=== PATIENT | female | born 1970 | race Caucasian/White ===

== ENCOUNTER 2016-12-04 12:40 | Emergency (ER) | payer MEDICAID | END 2016-12-04 13:49 | disposition home or self-care (01) | LOC: D.ER 12:40 | DX: F20.9 Schizophrenia, unspecified (principal) ==

== ENCOUNTER 2019-01-08 18:52 | Emergency (ER) | payer MEDICARE, OTHER ==
[~2019-01-08] VITALS: Ht 162.6 cm; Wt 50.9 kg
[2019-01-08 19:01] VITALS: Ht 162.6 cm; Wt 50.9 kg
[2019-01-08 19:30] LABS: HEMATOCRIT 40.5 % (36.0-48.0); HEMOGLOBIN 14.9 g/dL (12-16); MCH 32.2 pg (26.0-34.0); MCHC 36.8 g/dL (31.0-37.0); MCV 87.5 fL (80.0-100.0); MEAN PLATELET VOLUME 10.7 fL (7.4-10.4); PLATELET COUNT 220 10x3/uL (130-400); RBC 4.63 10x6/uL (4.00-5.40); RDW 13.1 % (11.5-14.5); WBC 4.6 10x3/uL (4.8-10.8)
[2019-01-08 19:43] LABS: HCG SERUM NEGATIVE (NEGATIVE)
[2019-01-08 19:49] LABS: ALBUMIN 3.8 g/dL (3.4-5.0); ALKALINE PHOSPHATASE 88 U/L (46-116); ALT (SGPT) 26 U/L (10-68); BILIRUBIN - TOTAL 0.29 mg/dL (0.2-1.3); CALC OSMOLALITY 278 mosm/kg (275-300); CALCIUM 8.8 mg/dL (8.5-10.1); CARBON DIOXIDE 26.5 mmol/L (21.0-32.0); CHLORIDE - SERUM 102 mmol/L (98-107); CREATININE - SERUM 0.8 mg/dL (0.6-1.3); GLUCOSE 84 mg/dL (74-106); MAGNESIUM - SERUM 1.8 mg/dL (1.8-2.4); POTASSIUM - SERUM 3.7 mmol/L (3.5-5.1); PROTEIN - SERUM 7.4 g/dL (6.4-8.2); SODIUM 140 mmol/L (136-145); UREA NITROGEN 14 mg/dL (7-18); eGFR NON AFRICAN AMERICAN 81 mL/min (90-120)
[2019-01-08 19:55] LABS: EOSINOPHILS 1 % (0-7); LYMPHOCYTES 40 % (15-50); MONOCYTES 21 % (2-11); NEUTROPHILS 38 % (40-80)
[2019-01-08 19:56] LABS: PLATELET ESTIMATE NORMAL; ROULEAUX 1+; TARGET CELLS OCC; TEAR DROP CELLS 1+
[2019-01-08 20:24] LABS: APPEARANCE CLEAR (CLEAR); BILIRUBIN NEGATIVE (NEGATIVE); COLOR DK YELLOW (YELLOW); GLUCOSE NEGATIVE (NEGATIVE); KETONE LARGE mg/dL (NEGATIVE); NITRITE NEGATIVE (NEGATIVE); PROTEIN 1+ mg/dL (NEGATIVE); UROBILINOGEN NORMAL (NORMAL)
[2019-01-08 20:26] LABS: RED CELLS - URINE 0-5 /hpf (0-5)
[2019-01-08 20:27] LABS: AMORPHOUS SEDIMENT <1+ /lpf (NONE SEEN); BACTERIA FEW /hpf (NONE SEEN); EPITHELIAL CELLS 0-5 /hpf (0-5)
[2019-01-08 20:34] LABS: UDS - AMPHET NEGATIVE QUAL (NEGATIVE); UDS - BARB NEGATIVE QUAL (NEGATIVE); UDS - BENZO POSITIVE QUAL (NEGATIVE); UDS - COCAINE NEGATIVE QUAL (NEGATIVE); UDS - OPIATE NEGATIVE QUAL (NEGATIVE); UDS - PCP NEGATIVE QUAL (NEGATIVE); UDS - THC NEGATIVE QUAL (NEGATIVE)
[2019-01-08 22:26] VITALS: BP 130/89
== END 2019-01-08 22:26 | disposition home or self-care (01) ==
LOC: D.ER 18:52
PROVIDERS: Family Medicine
DX: R53.81 Other malaise (principal); F20.9 Schizophrenia, unspecified